=== PATIENT | male | born 1970 | race Caucasian/White ===

== ENCOUNTER → 2021-05-12 | Outpatient (CLI) | payer OTHER ==
--- NOTE | 2021-05-12 12:50 | RAD ---
XR EXAM OF ANKLE_RIGHT 2 VIEWS DATE: 05/12/2021 9:05 AM INDICATION: RT ANKLE PAIN COMPARISON: None. FINDINGS: Bones: There is no evidence of acute fracture or dislocation. Corticated ossific densities inferior t o the medial malleolus may relate to prior injury. Plantar calcaneal enthesophyte. Joints: The ankle mortise is congruent. No widening of the distal tibiofibular syndesmosis. Moderate degenerative changes of the ankle joint. Miscellaneous: None. IMPRESSION: No acute osseous abnormality. Moderate ankle joint degenerative changes. Electronically signed by: Hank Mandel MD (05/12/2021 12:48 PM) [id number]
== END ==
LOC: RAD 08:45
PROVIDERS: ATTEND Family Medicine
DX: M19.071 Primary osteoarthritis, right ankle and foot (principal); Z02.71 Encounter for disability determination
CPT/HCPCS: 73600